=== PATIENT | female | born 2000 | race Caucasian/White ===

== ENCOUNTER 2021-12-14 22:56 | Emergency (ER) | payer SELFPAY ==
[~2021-12-14] VITALS: Ht 160 cm; Wt 54.4 kg
[2021-12-14 22:58] VITALS: BP 134/89
[2021-12-15] MEDS ORDERED: LORazepam 1 MG TAB PO ONE (00:10)
[2021-12-15] MEDS ORDERED: KETOROLAC 30 MG/ML VIAL IM ONE (00:10)
[2021-12-15 03:02] VITALS: BP 110/82
== END 2021-12-15 03:07 | disposition home or self-care (01) ==
LOC: MED 22:56
DX: F41.9 Anxiety disorder, unspecified (principal); R06.00 Dyspnea, unspecified
CPT/HCPCS: 71045; 81025; 93005; 96372; 99283; J1885; Q0092